=== PATIENT | female | born 2000 | race Caucasian/White ===

== ENCOUNTER 2020-10-02 14:01 | Emergency (ER) | payer MEDICAID, OTHER ==
[~2020-10-02] VITALS: Ht 167.6 cm; Wt 85.3 kg
[2020-10-02 14:07] VITALS: BP 122/76
--- NOTE | 2020-10-02 14:22 | NUR ---
LAB AT BEDSIDE
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
--- NOTE | 2020-10-02 14:30 | NUR ---
[facility] in [facility] - 10/02/20 at 1430 by [email or web address] lab at bedside
[2020-10-02 14:35] LABS: BASOPHILS % (AUTO) 0.6 % (0.0-2.0); EOSINOPHILS # (AUTO) 0.2 K/uL (0-0.4); EOSINOPHILS % (AUTO) 2.3 % (0.0-4.0); HEMATOCRIT 34.7 % (36-48); HEMOGLOBIN 11.2 g/dL (12.0-16.0); LYMPHOCYTES # (AUTO) 2.5 K/uL (2.5-16.5); LYMPHOCYTES % (AUTO) 30.2 % (20.5-51.1); MEAN CORPUSCULAR HEMOGLOBIN 25 pg (27-31); MEAN CORPUSCULAR HGB CONC 32 g/dL (33-37); MONOCYTES # (AUTO) 0.5 K/uL (0.8-1.0); MONOCYTES % (AUTO) 6.5 % (1.7-9.3); NEUTROPHILS # (AUTO) 5.1 K/uL (1.8-7.7); NEUTROPHILS % (AUTO) 60.4 % (42.2-75.2); PLATELET COUNT (AUTO) 299 K/uL (140-450); RED BLOOD CELL COUNT(AUTO) 4.44 MIL/uL (4.20-5.40); RED CELL DISTRIBUTION WIDTH 18.6 % (11.6-13.7); WHITE BLOOD COUNT (AUTO) 8.4 K/uL (4.8-10.8)
--- NOTE | 2020-10-02 14:44 | NUR ---
PA AT BEDSIDE
[2020-10-02] MEDS ORDERED: LORazepam 1 MG TAB PO ONE (14:45)
[2020-10-02] MEDS ORDERED: KETOROLAC 30 MG/ML VIAL IM ONE (14:45)
[2020-10-02 15:01] LABS: APPEARANCE,URINE CLEAR (CLEAR); BILIRUBIN,URINE NEGATIVE (NEGATIVE); BLOOD, URINE 3+ (NEGATIVE); COLOR,URINE RED (YELLOW); LEUKOCYTE ESTERASE ,URINE TRACE (NEGATIVE); NITRITE, URINE NEGATIVE (NEGATIVE); PH,URINE 7.5 (5.0-9.0); UGLUCOSE NEGATIVE (NEGATIVE)
--- NOTE | 2020-10-02 15:32 | NUR ---
pt mother called for information but name not in chart. pt stated that she wanted no information to be given to mother
[2020-10-02 15:59] LABS: RBC,URINE >100 /HPF (0-5)
[2020-10-02 16:06] VITALS: BP 123/74
--- NOTE | 2020-10-02 16:06 | NUR ---
Patient discharged with v/s stable. Written and verbal after care instructions given and explained. Patient alert, oriented and verbalized understanding of instructions. Ambulatory with steady gait. All questions addressed prior to discharge. ID band removed. Patient advised to follow up with PMD. Rx of [place] given. Patient educated on indication of medication including possible reaction and side effects. Opportunity to ask questions provided and answered.
== END 2020-10-02 16:06 | disposition home or self-care (01) ==
LOC: MED 14:01
DX: O03.9 Complete or unspecified spontaneous abortion without complication (principal)
CPT/HCPCS: 36415; 81001; 84702; 85025; 87086; 96372; 99283; J1885

== ENCOUNTER 2021-10-17 20:59 | Emergency (ER) | payer MEDICAID ==
[~2021-10-17] VITALS: Ht 170.2 cm; Wt 88.9 kg
[2021-10-17 21:26] VITALS: BP 135/106
--- NOTE | 2021-10-17 21:34 | NUR ---
DR ROLAND EXAMIONING IN TRIAGE
[2021-10-17] MEDS ORDERED: ONDANSETRON 4 MG/2 ML VIAL IVP ONE (21:40)
[2021-10-17] MEDS ORDERED: NACL 0.9% 1,000 ML IV ONE (21:40)
[2021-10-17 22:14] LABS: BASOPHILS % (AUTO) 0.2 % (0.0-2.0); EOSINOPHILS % (AUTO) 0.6 % (0.0-4.0); HEMATOCRIT 36.4 % (36-48); LYMPHOCYTES % (AUTO) 25.3 % (20.5-51.1); MEAN CORPUSCULAR HEMOGLOBIN 25 pg (27-31); MEAN CORPUSCULAR HGB CONC 33 g/dL (33-37); MEAN CORPUSCULAR VOLUME 74.9 fL (80-94); MONOCYTES # (AUTO) 0.4 K/uL (0.8-1.0); MONOCYTES % (AUTO) 5.3 % (1.7-9.3); NEUTROPHILS # (AUTO) 5.3 K/uL (1.8-7.7); NEUTROPHILS % (AUTO) 68.6 % (42.2-75.2); PLATELET COUNT (AUTO) 327 K/uL (140-450); RED BLOOD CELL COUNT(AUTO) 4.86 MIL/uL (4.20-5.40); RED CELL DISTRIBUTION WIDTH 18.5 % (11.6-13.7); WHITE BLOOD COUNT (AUTO) 7.7 K/uL (4.8-10.8)
[2021-10-17 22:35] LABS: ALBUMIN 4.5 g/dL (3.4-5.0); CARBON DIOXIDE 26.1 mmol/L (21-32); CREATININE 0.7 mg/dL (0.6-1.3); POTASSIUM 4.1 mmol/L (3.5-5.1); TOTAL BILIRUBIN 1.1 mg/dL (0.0-1.0)
[2021-10-17] MEDS ORDERED: ONDANSETRON 4 MG/2 ML VIAL ONE (23:27)
--- NOTE | 2021-10-17 23:32 | NUR ---
PT TAKEN TO BED 10
--- NOTE | 2021-10-17 23:35 | NUR ---
21 YO F BIB SELF WITH C/C OF V/D X5DAYS. REPORTS 2/10 EPIGASTRIC PAIN. TESTED (+) FOR COVID 10/05/21. NOW APPETITE HAS DECREASED. I FEEL DELUSIONAL "I HAVEN'T SLEPT FOR 4 DAYS" TESTED TODAY FOR COVID AND WAS (-). DENIES HX RX ALLERGIES:PCN
[2021-10-17 23:55] VITALS: BP 124/70
--- NOTE | 2021-10-18 01:03 | NUR ---
PT AMBULATED TO FOR URINE COLLECTION AND BACK TO BED.
[2021-10-18 01:12] LABS: APPEARANCE,URINE CLOUDY (CLEAR); BILIRUBIN,URINE NEGATIVE (NEGATIVE); BLOOD, URINE NEGATIVE (NEGATIVE); COLOR,URINE YELLOW (YELLOW); LEUKOCYTE ESTERASE ,URINE TRACE (NEGATIVE); NITRITE, URINE NEGATIVE (NEGATIVE); UGLUCOSE NEGATIVE (NEGATIVE)
[2021-10-18] MEDS ORDERED: ONDA-188 PO (01:16)
[2021-10-18 01:18] LABS: RBC,URINE 0-5 /HPF (0-5)
== END 2021-10-18 01:25 | disposition home or self-care (01) ==
LOC: MED 20:59
DX: U07.1 COVID-19 (principal); A08.39 Other viral enteritis; E86.0 Dehydration; Z79.899 Other long term (current) drug therapy; Z88.6 Allergy status to analgesic agent; Z88.2 Allergy status to sulfonamides; Z88.1 Allergy status to other antibiotic agents; Z88.0 Allergy status to penicillin
CPT/HCPCS: 36415; 80053; 81001; 85025; 87086; 96374; 99283; J2405; J7030

== ENCOUNTER 2022-02-19 23:58 | Emergency (ER) | payer MEDICAID ==
[~2022-02-19] VITALS: Ht 167.6 cm; Wt 81.6 kg
[~2022-02-19 23:58] MED LIST: ONDA-188 PO
[2022-02-20 00:05] VITALS: BP 129/79
--- NOTE | 2022-02-20 00:05 | NUR ---
TO BED VIA W/C
[2022-02-20] MEDS ORDERED: KETOROLAC 60 MG/2 ML VIAL IM ONE (00:35)
[2022-02-20] MEDS ORDERED: HYDROcodone/APAP 5/325 MG 1 TAB TAB PO ONE (00:35)
[2022-02-20] MEDS ORDERED: KETOROLAC 30 MG/ML VIAL IVP ONE ×2 (00:50→02:55)
[2022-02-20] MEDS ORDERED: IBUP-2218 PO (02:24)
[2022-02-20] MEDS ORDERED: HYDR-5080 PO (02:24)
[2022-02-20] MEDS ORDERED: KETOROLAC 15 MG/ML VIAL ONE (02:55)
[2022-02-20 03:08] VITALS: BP 119/78
== END 2022-02-20 03:00 | disposition home or self-care (01) ==
LOC: MED 23:58
DX: M54.50 Low back pain, unspecified (principal); Z88.1 Allergy status to other antibiotic agents; Z88.2 Allergy status to sulfonamides; Z88.0 Allergy status to penicillin; Z88.6 Allergy status to analgesic agent; Z79.899 Other long term (current) drug therapy
CPT/HCPCS: 72110; 72220; 84703; 96374; 96375; 99284; J1885